=== PATIENT | female | born 1935 | race Caucasian/White ===

== ENCOUNTER 2016-02-29 15:36 | Outpatient (CLI) | payer OTHER ==
[~2016-02-29] VITALS: Ht 152.4 cm; Wt 47.7 kg
[~2016-02-29 15:36] MED LIST: /MOXI40TA OR; ACET65TA OR; ALPHAGAN OU; ASPI81TA51 PO; Albuterol Inhaler INH; Albuterol Nebulizer INH; BONE DENSITY IM; DONEPEZIL PO; DUONSOL INH; FURO20TA2 PO; GLUC500T3 OR; KEPP500T4 PO; LASI20TA PO; MUCI600T34 PO; MULTIVIT PO; Multivitamin PO; Oxygen INH; PERC5TAB8 OR; PRAV10TA4 OR; SYMB80AE IN; Symbicort Inhaler INH; TRAM50TA2 OR; XALATAN OU; ZOLEDRONIC ACID 5 MG in APPROPRIATE DILUENT 1 EA IV ONE; [UNRECOGNIZED DRUG - OTHER] PO; [UNRECOGNIZED DRUG - REMARK] OU
[2016-02-29] MEDS ORDERED: BREO1INH INH (16:18)
[2016-02-29] MEDS ORDERED: TYLE325T5 PO (16:18)
[2016-02-29] MEDS ORDERED: LEVE500T64 PO (16:18)
[2016-02-29] MEDS ORDERED: [UNRECOGNIZED DRUG - OTHER] OU (16:18)
[2016-02-29] MEDS ORDERED: ASPI81TA85 PO (16:18)
[2016-02-29] MEDS ORDERED: BIMA01SOL OU (16:18)
[2016-02-29] MEDS ORDERED: RECL5INJ2 IV (16:48)
== END 2016-02-29 16:40 | disposition home or self-care (01) ==
LOC: M INFU 15:36
PROVIDERS: ATTEND Family Medicine
DX: M81.0 Age-related osteoporosis without current pathological fracture (principal); Z78.0 Asymptomatic menopausal state; I10 Essential (primary) hypertension; E78.5 Hyperlipidemia, unspecified; I50.9 Heart failure, unspecified; J44.9 Chronic obstructive pulmonary disease, unspecified; M19.90 Unspecified osteoarthritis, unspecified site; F17.200 Nicotine dependence, unspecified, uncomplicated; Z88.8 Allergy status to other drugs, medicaments and biological substances; Z88.2 Allergy status to sulfonamides; Z91.013 Allergy to seafood; Z79.82 Long term (current) use of aspirin; Z79.51 Long term (current) use of inhaled steroids; Z79.899 Other long term (current) drug therapy; Z99.81 Dependence on supplemental oxygen
CPT/HCPCS: 96365; J3489

== ENCOUNTER → 2016-03-08 | Outpatient (CLI) | payer OTHER ==
[~2016-03-08] MED LIST changes: +ASPI81TA85 PO; +BIMA01SOL OU; +BREO1INH INH; +LEVE500T64 PO; +RECL5INJ2 IV; +TYLE325T5 PO; -ZOLEDRONIC ACID 5 MG in APPROPRIATE DILUENT 1 EA IV ONE; +[UNRECOGNIZED DRUG - OTHER] OU
--- NOTE | 2016-03-12 10:29 | DEXA ---
AP SPINE L1 - L4 1.005 -1.5 0.9 LT FEMUR TOTAL 0.816 -1.5 1.1 RT FEMUR TOTAL 0.858 -1.2 1.4 TOTAL BODY TOTAL OTHER L1 0.713 -3.5 -1.0 DUAL FEMUR FRAX* ASSESSMENT Risk factors: History of adult fracture, secondary osteoporosis, premature menopause. 10 year probability of fracture Major osteoporotic fracture 17.6 % Hip fracture 4.9 % COMMENTS: There is low bone density of the spine and hips. The density of the spine has decreased 1.0% since the initial exam on 2001. The spine density has decreased 1.4% since the most recent exam on 05/21/2006. The density of the left hip has decreased 9.4% since the initial exam on 2001. The density of the left hip has decreased 4.4% since the most recent exam on 04/2006. The density of the right hip has decreased 4.5% since the initial exam on 2001. The density of the right hip has decreased 1.2% since the most recent exam on . FOLLOW-UP: Recommendation for the next bone density exam: 2 years. DANIELA
== END ==
LOC: M WHC 11:29
PROVIDERS: ATTEND Family Medicine
DX: M81.0 Age-related osteoporosis without current pathological fracture (principal); Z78.0 Asymptomatic menopausal state

== ENCOUNTER 2016-08-04 10:36 | Inpatient (IN) | payer OTHER ==
[~2016-08-04] VITALS: Ht 152.4 cm; Wt 54.5 kg
[2016-08-04] MEDS ORDERED: MAGN30TA2 PO (10:56)
[2016-08-04] MEDS ORDERED: DONETAB5 PO ×2 (10:56→13:25)
[2016-08-04] MEDS ORDERED: VITA-114 PO (10:56)
[2016-08-04] MEDS ORDERED: ALB2.5NEB INH (10:56)
[2016-08-04] MEDS ORDERED: GLUC1CAP9 PO (10:56)
[2016-08-04] MEDS ORDERED: NS 500 ML IV ONE (11:00)
[2016-08-04] MEDS ORDERED: methylPREDNISolone INJ 125 MG/2 ML VIAL (J2930) IV ONE (11:00)
[2016-08-04] MEDS ORDERED: IPRATROPIUM 0.5MG/ALBUTEROL 2.5MG INH SOL UD 3ML (DUONEB)(J7620) NEB ONE (11:00)
[2016-08-04] MEDS ORDERED: ALBUTEROL SULFATE 2.5 MG/0.5 ML INH NEB SOLN INH ONE (11:00)
[2016-08-04 11:28] LABS: BASO % 0.3 % (0.0-1.0); EOS % 0.1 % (0.0-3.0); LARGE UNSTAINED CELL # 0.1 K/mm3 (0.0-0.4); LARGE UNSTAINED CELL % 0.8 % (0.0-4.0); LYMPH # 1.3 K/mm3 (1.5-4.5); LYMPH % 6.9 % (24.0-44.0); MEAN CORPUSCULAR HEMOGLOBIN 30.4 pg (27.0-33.0); MEAN CORPUSCULAR HGB CONC 33.2 g/dl (32.0-36.5); MEAN CORPUSCULAR VOLUME 91.4 fl (80.0-96.0); MONO # 0.9 K/mm3 (0.0-0.8); MONO % 5.5 % (0.0-5.0); NEUTROPHILS # 14.2 K/mm3 (1.8-7.7); NEUTROPHILS % 86.4 % (36.0-66.0); PLATELET COUNT, AUTOMATED 273 k/mm3 (150-450); RED CELL DISTRIBUTION WIDTH 13.3 % (11.5-14.5); WHITE BLOOD COUNT 16.4 K/mm3 (4.0-10.0)
[2016-08-04 11:28] LABS: ABG BASE EXCESS 5.7 (-2.0-2.0); ABG HCO3 31.1 MEQ/L (22.0-26.0); ABG PARTIAL PRESSURE CO2 48.9 mmHg (35.0-45.0); ABG PARTIAL PRESSURE O2 354.8 mmHg (75.0-100.0); ABG STANDARD HCO3 29.7 MEQ/L (22.0-26.0); ABG TOTAL CO2 32.7 MEQ/L (23.0-31.0); ABG pH (ARTERIAL) 7.422 UNITS (7.350-7.450)
[2016-08-04 11:33] LABS: INR 1.08
[2016-08-04 11:45] LABS: ALBUMIN 3.4 GM/DL (3.2-5.2); ALBUMIN/GLOBULIN RATIO 0.94 (1.00-1.93); ALKALINE PHOSPHATASE 83 U/L (45-117); ALT/SGPT 18 U/L (12-78); ANION GAP 7 MEQ/L (8-16); AST/SGOT 13 U/L (15-37); BILIRUBIN,DIRECT 0.1 MG/DL (0.0-0.2); BILIRUBIN,TOTAL 0.5 MG/DL (0.2-1.0); BLOOD UREA NITROGEN 20 MG/DL (7-18); CARBON DIOXIDE LEVEL 32 MEQ/L (21-32); CHLORIDE LEVEL 103 MEQ/L (98-107); CREATININE FOR GFR 0.92 MG/DL (0.55-1.02); GLOMERULAR FILTRATION RATE > 60.0 (>32); GLUCOSE, FASTING 117 MG/DL (83-110); POTASSIUM SERUM 4.2 MEQ/L (3.5-5.1); SODIUM LEVEL 142 MEQ/L (136-145)
--- NOTE | 2016-08-04 12:08 | REP ---
Portable chest x-ray: Sitting AP view. History: Dyspnea and cough. Comparison chest x-ray: April 17, 2012. Findings: EKG monitoring electrodes overlie the chest along with oxygen delivery tubing. The patient is status post left thoracotomy with elevation of the left hemidiaphragm and left mediastinal clips and sutures. The heart is not enlarged. There is some increased density in the right base just above the right hemidiaphragm which appears to be chronic. No new infiltrate is seen. Stable left apical pleural thickening. Impression: Postsurgical findings left chest. Chronic increased markings right base. No acute infiltrate seen. Signed by Vik Tucker MD 08/04/2016 12:45 P
[2016-08-04] MEDS ORDERED: ACETAMINOPHEN TAB 650MG DOSE (2X325MG) PO PRN (13:15)
[2016-08-04] MEDS ORDERED: ONDANSETRON 4MG/2ML VIAL (J2405) IV PRN (13:15)
[2016-08-04] MEDS ORDERED: IPRATROPIUM 0.5MG/ALBUTEROL 2.5MG INH SOL UD 3ML (DUONEB)(J7620) NEB PRN (13:15)
[2016-08-04] MEDS ORDERED: FURO40TA2 PO (13:25)
[2016-08-04] MEDS ORDERED: BREO1INH3 INH (13:25)
[2016-08-04] MEDS ORDERED: BIOT10005 PO (13:25)
[2016-08-04] MEDS ORDERED: FIBE62TA PO (13:25)
[2016-08-04] MEDS ORDERED: VITA100041 PO (13:25)
[2016-08-04] MEDS ORDERED: MAGN400T5 PO (13:25)
[2016-08-04] MEDS ORDERED: PRESCAP6 PO (13:25)
[2016-08-04] MEDS ORDERED: VITA10002 PO (13:25)
[2016-08-04] MEDS ORDERED: ALBU17IN INH (13:25)
[2016-08-04] MEDS ORDERED: BRIM2OPD OU (13:25)
[2016-08-04] MEDS ORDERED: VITMTA PO (13:25)
[2016-08-04] MEDS ORDERED: NAME14CA PO (13:25)
[2016-08-04] MEDS ORDERED: PREV10CA PO (13:34)
--- NOTE | 2016-08-04 14:14 | HPEPDOC ---
General Date of Admission 08/04/16 Primary Care Physician: ALEXA MARTINEZ MD [facility] Other Providers Icu Manager: Dr. Matos Attending Physician: KAYLEEN YEE MD Chief Complaint The patient is a 81-year-old female admitted with a reason for visit of Breathing Issues. History of Present Illness 81-year-old female with past medical history of COPD on 3-4 L of oxygen at baseline, left upper lobectomy 2/2 Benign lesion in Early , diastolic congestive heart failure, seizure disorder, and dementia presented to the ER with a chief complaint of shortness of breath. The extent of his history is somewhat limited given the patient's baseline dementia. However according to the patient's daughter who is at the bedside the patient has been complaining of shortness of breath over the last 24 hours. The patient lives alone in a separate portion from her son in a two-family home. At baseline, the patient is able to ambulate without any assistive devices. Earlier today, the patient's son went to check up on his mother and noticed that the patient was having increased difficulty breathing. Apparently, the patient's air-conditioner was not working and the temperature in the room was noted to be 85 degrees. In addition, the patient was noted to be saturating 86% on 4 L of oxygen via nasal cannula. The patient was administered albuterol treatment, but continued to have respiratory distress and was brought to the ER. During this time, the patient has denied any complaints of fevers, chills, chest pain, palpitations, abdominal pain, recent travel, recent sick contacts, or any nausea/vomiting/ diarrhea. In the ER, the patient was noted to be wheezing diffusely and was administered IV Solu-Medrol. The patient will be admitted under the hospitalist service for further evaluation and management. Home Medications Scheduled (Glucosamine & Chondroitin 500-400 mg) 1 Cap Cap, 1 CAP PO QHS, (Reported) (Preservision Areds 2) 1 Cap Cap, 1 CAP PO BID, (Reported) (Prevagen) 10 Mg Cap, 10 MG PO DAILY, (Reported) Acetaminophen (Tylenol) 325 Mg Tab, 650 MG PO PRN for PAIN, (Reported) Albuterol Sulfate (Albuterol Sulfate) 2.5 Mg/0.5 Ml Neb, 2.5 MG INH QID, ( Reported) Aspirin (Aspir-81) 81 Mg Tab, 81 MG PO QHS, (Reported) Bimatoprost (Lumigan) 50 Drop/2.5 Ml Marissa, 1 DROP OU QHS, (Reported) Biotin (Vitamin H) (Biotin) 1,000 Mcg Tab, 1,000 MCG PO QHS, (Reported) Brimonidine Tartrate 0.15% (Brimonidine Tartrate) 100 Drop/5 Ml Soln, 1 DROP OU BID, (Reported) PT USES .2%- COULD NOT FIND IN OUR SYSTEM Calcium Polycarbophil (Fiber-Lax) 1 Ea Tab, 1 TAB PO DAILY, (Reported) Cholecalciferol (Vitamin D3) 1,000 Unit Cap, 2,000 UNIT PO DAILY, (Reported) Cyanocobalamin (Vitamin B-12) 1,000 Mcg Tab, 1,000 MCG PO QHS, (Reported) Donepezil Hcl (Donepezil HCl) 5 Mg Tab, 5 MG PO DAILY, (Reported) Fluticasone/Vilanterol (Breo Ellipta 200-25 Mcg/INH) 1 Inh Inh, 1 PUFF INH DAILY , (Reported) Furosemide (Furosemide) 40 Mg Tab, 20 MG PO DAILY, (Reported) Levetiracetam (Levetiracetam ER) 500 Mg Tab, 500 MG PO BID, (Reported) Magnesium Oxide (Magnesium Oxide 400) 400 Mg Tab, 400 MG PO DAILY, (Reported) Memantine Hydrochloride (Namenda Xr) 14 Mg Cap, 14 MG PO DAILY, (Reported) Multivitamins *[facility] STOCKED* (Thera M Plus *[facility] STOCKED*) 1 Tab Tab, 1 TAB PO DAILY, (Reported) Scheduled PRN Albuterol Sulfate (Ventolin Hfa) 200 Puff/8 Gm Aers, 2 PUFF INH Q4H PRN for SHORTNESS OF BREATH, (Reported) Allergies Coded Allergies: Scallop (Verified Allergy, Severe, FEELS LIKE SHE IS DYING, 02/08/11) Iodine (Verified Allergy, Unknown, 05/19/12) Sulfa Drugs (Verified Allergy, Unknown, 02/22/14) Sulfa Drugs Cross Reactors (Verified Allergy, Unknown, 02/22/14) Past Medical History Medical History As noted in HPI. Surgical History Left upper lobe surgery in , hysterectomy, cataract surgery. Family History Significant Family History: No pertinent family hx Social History * Smoker: former Smoker (smoked 1 pack per day for 30+ years, quit in 1990) Alcohol: occationally Drugs: denies Review of Symptoms Other systems 10 point review of systems as noted in the HPI. Physical Examination General Exam: Positive: Cooperative, No Acute Distress ENT Exam: Positive: Atraumatic, Mucous membr. moist/pink Neck Exam: Negative: JVD Chest Exam: Positive: Wheezing, Diminished Heart Exam: Positive: Rate Normal, Normal S1, Normal S2 Telemetry: Positive: Sinus Abdomen Exam: Positive: Soft, Negative: Tenderness Extremity Exam: Negative: Tenderness, Swelling Vital Signs Vital Signs Date Time Temp Pulse Resp B/P (MAP) Pulse Ox O2 Delivery O2 Flow Rate FiO2 08/04/16 13:51 90 08/04/16 13:30 159/62 (94) 08/04/16 13:21 98 08/04/16 11:08 Nasal Cannula 2.0 08/04/16 10:57 97.5 24 Laboratory Data Labs 24H Laboratory Tests 2 08/04/16 11:01: Prothrombin Time 14.1, Prothromb Time International Ratio 1.08, D-Dimer, Quantitative 936.6H 08/04/16 11:02: White Blood Count 16.4H, Red Blood Count 4.03, Hemoglobin 12.3, Hematocrit 36.9 , Mean Corpuscular Volume 91.4, Mean Corpuscular Hemoglobin 30.4, Mean Corpuscular Hemoglobin Concent 33.2, Red Cell Distribution Width 13.3, Platelet Count 273, Neutrophils (%) (Auto) 86.4H, Lymphocytes (%) (Auto) 6.9L, Monocytes (%) (Auto) 5.5H, Eosinophils (%) (Auto) 0.1, Basophils (%) (Auto) 0.3, Neutrophils # (Auto) 14.2H, Lymphocytes # (Auto) 1.3L, Monocytes # (Auto) 0.9H, Eosinophils # (Auto) 0.0, Basophils # (Auto) 0.0, Large Unclassified Cells % 0.8 , Large Unclassified Cells # 0.1, Anion Gap 7L, Glomerular Filtration Rate > 60.0, Lactic Acid Level 1.8, Calcium Level 9.0, Aspartate Amino Transf (AST/SGOT ) 13L, Alanine Aminotransferase (ALT/SGPT) 18, Alkaline Phosphatase 83, Total Bilirubin 0.5, Direct Bilirubin 0.1, Total Creatine Kinase 66, Creatine Kinase MB 1.0, Creatine Kinase MB Relative Index 1.51, Troponin I 0.02, B-Type Natriuretic Peptide 271H, Total Protein 7.0, Albumin 3.4, Albumin/Globulin Ratio 0.94L, Thyroid Stimulating Hormone (TSH) 4.430H, Thyroxine (T4) 7.0 08/04/16 11:04: Blood Gas Bicarbonate Standard 29.7H, Arterial Blood pH 7.422, Arterial Blood Partial Pressure CO2 48.9H, Arterial Blood Partial Pressure O2 354.8H, Arterial Blood Total CO2 32.7H, Arterial Blood HCO3 31.1H, Arterial Blood Base Excess 5.7H, Arterial Blood Oxygen Saturation 100.0H CBC/BMP Laboratory Tests 08/04/16 11:02 Red Blood Count 4.03, Mean Corpuscular Volume 91.4, Mean Corpuscular Hemoglobin 30.4, Mean Corpuscular Hemoglobin Concent 33.2, Red Cell Distribution Width 13.3 , Neutrophils (%) (Auto) 86.4 H, Lymphocytes (%) (Auto) 6.9 L, Monocytes (%) ( Auto) 5.5 H, Eosinophils (%) (Auto) 0.1, Basophils (%) (Auto) 0.3, Neutrophils # (Auto) 14.2 H, Lymphocytes # (Auto) 1.3 L, Monocytes # (Auto) 0.9 H, Eosinophils # (Auto) 0.0, Basophils # (Auto) 0.0 Microbiology Microbiology 08/04/16 Blood Culture, Received Pending 08/04/16 Blood Culture, Received Pending Plan / VTE VTE Prophylaxis Ordered?: Yes Plan Plan Acute on chronic hypoxic failure secondary to COPD exacerbation We will admit the patient to the med/surge unit Status post Solu-Medrol in the ER We will start her on by mouth prednisone, continue Advair, nebulizer therapy, Acapella Chest x-ray with no acute infiltrate noted Respiratory panel, sputum culture, and blood cultures ordered We will continue to monitor the patient's respiratory status and down titrate supplemental oxygen as tolerated History of diastolic congestive heart failure Last echocardiogram from 10/2011 noted to have stage I diastolic heart failure Patient does appear to be euvolemic at this time 2-D echocardiogram ordered Will continue Lasix by mouth daily History of seizure disorder Continue Yarelis Has not had an episode of seizures for years according to the daughter at bedside Follows with Dr. Min as an outpatient every 3 months History of left upper lobe lobectomy in 1990 History of dementia DVT prophylaxis Lovenox SC Social disposition-we will consult physical therapy, PFS for possible eligibility of home care services given the patient's current living situation. The patient will be admitted under service of Dr. Yee, who will begin to follow the patient on 08/05/16 at 7 AM. KAMRAN FRANCIS MD Aug 04, 2016 14:14
--- NOTE | 2016-08-04 15:16 | REP ---
Duplex extremity venous ultrasound: Bilateral lower extremities. History: Pain. Findings: The deep veins are anechoic and fully compressible from the groin to the popliteal fossa in the right and left lower extremity. Color flow imaging is homogeneous. Spectral Doppler interrogation demonstrates intact respiratory variation in flow and normal manual augmentation of flow. There is no evidence of deep vein thrombosis. Impression: Negative bilateral lower extremity duplex venous ultrasound. No evidence of deep vein thrombosis. Signed by Vik Tucker MD 08/04/2016 03:07 P
[2016-08-04 15:40] VITALS: BP 120/77
[2016-08-04] MEDS: IPRATROPIUM 0.5MG/ALBUTEROL 2.5MG INH SOL UD 3ML (DUONEB)(J7620) NEB SCH ×3 (16:09→22:42)
--- NOTE | 2016-08-04 19:44 | ECGEPIP ---
Stationary ECG Study [facility] - ED Test Date: 2016-08-04 Pat Name: MARTHA BANKS Department: Room: - Gender: F [employer] Feeder: OPAL : 1935 Requested By: Maikol Martinez Order Number: [id number] Reading MD: Maikol Martinez Measurements Intervals [place] Rate: 86 P: 79 ID: [id number] QRS: 36 QRSD: 77 T: 50 QT: 365 QTc: 439 Interpretive Statements SINUS RHYTHM POSSIBLE RIGHT VENTRICULAR CONDUCTION DELAY NONSPECIFIC ST T WAVE CHANGED CW 11/14/11 NO SIGNIFICANT CHANGES Electronically Signed On 08-04-2016 19:44:21 EDT by Maikol Martinez
[2016-08-04] MEDS: levETIRAcetam **XR** 500 MG TABLET PO SCH (20:06)
[2016-08-04] MEDS: ADVAIR DISKUS 250/50 INH PWD INH SCH (20:14)
[2016-08-04] MEDS ORDERED: ASPIRIN 81 MG ENTERIC TAB PO SCH (21:00)
[2016-08-04] MEDS ORDERED: CYANOCOBALAMIN 500 MCG TAB PO SCH (21:00)
[2016-08-04 22:00] VITALS: BP 139/70
[2016-08-05] MEDS: IPRATROPIUM 0.5MG/ALBUTEROL 2.5MG INH SOL UD 3ML (DUONEB)(J7620) NEB SCH ×3 (03:30→11:15)
[2016-08-05 06:00] VITALS: BP 154/77
[2016-08-05 06:01] LABS: MEAN CORPUSCULAR HGB CONC 32.4 g/dl (32.0-36.5); MEAN CORPUSCULAR VOLUME 92.7 fl (80.0-96.0); RED CELL DISTRIBUTION WIDTH 13.2 % (11.5-14.5); WHITE BLOOD COUNT 13.6 K/mm3 (4.0-10.0)
[2016-08-05 06:47] LABS: ANION GAP 3 MEQ/L (8-16); BLOOD UREA NITROGEN 19 MG/DL (7-18); CARBON DIOXIDE LEVEL 33 MEQ/L (21-32); CHLORIDE LEVEL 107 MEQ/L (98-107); CREATININE FOR GFR 0.82 MG/DL (0.55-1.02); GLOMERULAR FILTRATION RATE > 60.0 (>32); GLUCOSE, FASTING 118 MG/DL (83-110); MAGNESIUM LEVEL 2.5 MG/DL (1.8-2.4); POTASSIUM SERUM 4.2 MEQ/L (3.5-5.1); SODIUM LEVEL 143 MEQ/L (136-145)
--- NOTE | 2016-08-05 07:29 | ECHO ---
DATE OF PROCEDURE: 08/04/2016 DATE OF : 1935 AGE: 81 GENDER: Female HEIGHT: 60 inches WEIGHT: 105 pounds BODY SURFACE AREA: 1.42 meters squared INPATIENT: Currently in holding in the emergency room REFERRING PHYSICIAN: Dr. Holliday INDICATION: Dyspnea MEASUREMENTS 2D measurements: RV: 2.5 cm LV: 3.1 cm Septum: 0.9 cm Posterior wall: 0.9 cm Aortic root: 2.8 cm LA: 2.5 cm LVEF: 75% Doppler measurements: AV: 1.3 meters per second LVOT: 1.3 meters per second MV-E: 95, A: 130, EA ratio: 0.7 Early mitral deceleration time: 278 milliseconds E prime: 6.4, A prime: 14, E/E prime ratio: 14.8 PV: 1.0 meters per second Pulmonary artery acceleration time: 113 milliseconds RVSP: 28-32 mmHg IVC: 1.5 cm Underlying sinus rhythm without intraventricular conduction disturbance. Two-dimensional and M-mode echocardiography, pulsed and continuous wave Doppler, tissue Doppler and color flow Doppler was performed. CONCLUSIONS: Normal left ventricular size, wall thickness and hyperkinetic wall motion. Normal left atrial size but Doppler evidence of an impairment of LV diastolic function and at least borderline elevated mean left atrial pressure. Normal right heart chamber sizes and wall motion with Doppler evidence of pulmonary arterial pressure upper limits of normal to mildly increased. Normal IVC size and collapse against an elevated central venous pressure. Aortic valvular sclerosis without functional abnormality. Slightly thickened mitral annulus without inflow tract obstruction and very mild insufficiency. No apparent intracardiac mass or pericardial effusion.
[2016-08-05] MEDS: ADVAIR DISKUS 250/50 INH PWD INH SCH (08:19)
[2016-08-05] MEDS: levETIRAcetam **XR** 500 MG TABLET PO SCH (08:53)
[2016-08-05] MEDS ORDERED: MAGNESIUM OXIDE 400 MG TAB (MAG-OX) PO SCH (09:00)
[2016-08-05] MEDS ORDERED: FIBER-CON 625 MG TAB PO SCH (09:00)
[2016-08-05] MEDS ORDERED: FUROSEMIDE 20 MG TAB PO SCH (09:00)
[2016-08-05] MEDS ORDERED: predniSONE 20 MG TAB PO SCH (09:00)
[2016-08-05] MEDS ORDERED: ENOXAPARIN 30 MG/0.3 ML SYR (J1650) SC SCH (09:00)
[2016-08-05] MEDS ORDERED: VITAMIN D 1,000 INTERNATIONAL UNITS TABLET PO SCH (09:00)
[2016-08-05] MEDS ORDERED: MULTIVITAMINS/MINERALS THERAP 1 TAB PO SCH (09:00)
[2016-08-05] MEDS ORDERED: PRED10TA PO (09:35)
--- NOTE | 2016-08-06 03:31 | DSES ---
DATE OF ADMISSION: 08/04/2016 DATE OF DISCHARGE: 08/05/2016 DISCHARGE DIAGNOSIS: Acute on chronic respiratory failure. SECONDARY DIAGNOSES: 1. Chronic obstructive pulmonary disease (COPD). 2. Chronic diastolic congestive heart failure. 3. Seizure disorder. 4. Status post lobectomy. 5. Dementia. HOSPITAL COURSE: The patient is an 81-year-old female who had been reportedly having increased coughing, increased shortness of breath on the day prior to admission. There was also some concern that the home where she was living the air conditioner broke and it was very hot. She presented to the hospital hypoxic. She received intravenous (IV) Solu-Medrol, DuoNebs, and was admitted to medical/surgical floor. She did improve with these measures quite quickly and returned to her baseline respiratory status. She did have an echocardiogram completed, which revealed Doppler evidence of left ventricular (LV) diastolic impairment, normal inferior vena cava (IVC) size and collapse. Patient was offered home services and home care; however, she did not wish to remain in the hospital in order for this to be arranged by social work. Blood cultures were negative after 24 hours. Respiratory PCR panel was negative. Patient had duplex of the lower extremities that did not reveal any deep venous thrombosis (DVT). She had a slightly elevated D-dimer of 936.6. She had a chest x-ray that revealed postsurgical left chest and chronic increased markings at the right base, but no acute infiltrate. SUBJECTIVE: Today, the patient reports that she feels well. She tells me that she feels completely back to normal. She was ready to go home. The patient is accompanied by her two daughters in the room, who agree. OBJECTIVE: VITAL SIGNS: Temperature 97, pulse 88, respiratory rate 20, blood pressure 154/77, oxygen saturation 94% on 2 liters nasal cannula. GENERAL: She is a frail, elderly female sitting up in a chair eating breakfast. She is in no distress. HEENT: She appears comfortable. She has moist mucous membranes. No elevation of central venous pressure (CVP). CARDIOVASCULAR EXAM: S1, S2, regular. RESPIRATORY EXAM: She has a prolonged expiratory phase. She has a pink puffer phenotype. No audible wheeze. ABDOMINAL EXAM: Benign. EXTREMITIES: She appears wasted. LABORATORY STUDIES: WBC 13.6 down from 16.4, hemoglobin 10.7, hematocrit 33.2, platelet count 243. Chemistry panel: Sodium 143, potassium 4.2, chloride 107, bicarbonate 33, BUN 19, creatinine 0.9. Three sets of cardiac enzymes are negative. D-dimer 936.6. ASSESSMENT AND PLAN: This is an 81-year-old female with acute on chronic respiratory failure. 1. Acute on chronic respiratory failure. Likely secondary to decompensated chronic obstructive pulmonary disease (COPD) versus respiratory distress related to significant humidity and heat in the setting where the patient lives. Fairly significant baseline COPD and status post lung resection. At this time, the patient's symptoms have completely resolved. Her D-dimer was elevated; however, given that she is not tachycardic, there is alternative competing diagnosis and her symptoms have all resolved without anticoagulation, my suspicion for pulmonary embolus (PE) is much lower. At this time, the patient is medically stable for discharge home. The patient will be discharged on a prednisone taper. She can use her home inhalers. 2. Seizure disorder. Continue with Keppra. 3. B12 deficiency. Continue with supplementation. 4. Diastolic heart failure. The patient was euvolemic during her stay. She was continued on Lasix. She is on aspirin. 5. Deep venous thrombosis (DVT) prophylaxis. The patient was on Lovenox. DISPOSITION: The patient is being discharged home to the care of her family. She has people with her 10/09. She is to followup with her primary care provider (PCP) in 7 days. Her activity and diet are as prior to admission. She is to return to the emergency room (ER) if her symptoms worsen. She is to consider home care through primary care provider. MEDICATIONS: At the time of discharge: - prednisone four tablets for 3 days, three tablets for 3 days, two tablets for 3 days, one tablet for 3 days - acetaminophen 650 as needed for pain - albuterol nebulizer 2.5 mg four times daily - Ventolin HFA two puffs every 4 hours as needed for shortness of breath - aspirin 81 mg daily - Lumigan one drop nightly each eye - vitamin H as per the patient - brimonidine tartrate each eye twice a day - Fiber-Lax as per the patient - vitamin D3 2000 units daily - B12 1000 mcg at bedtime - donepezil 5 mg daily - Breo Ellipta 200/25 one puff daily - Lasix 20 mg daily - glucosamine chondroitin as per the patient - Keppra extended release 500 mg twice a day - magnesium oxide 400 mg daily - Namenda XR 14 mg daily - multivitamin one tablet daily - PreserVision AREDS as per the patient - Prevagen 10 mg as per the patient Greater than 45 minutes spent organizing disposition.
== END 2016-08-05 11:36 | disposition home or self-care (01) | DRG 189 ==
LOC: M ED 12:08 → M ED INP 13:04 → M MSPAV 15:40
PROVIDERS: ADMIT Internal Medicine; ATTEND Internal Medicine
DX: J96.21 Acute and chronic respiratory failure with hypoxia (principal); J44.1 Chronic obstructive pulmonary disease with (acute) exacerbation; I50.32 Chronic diastolic (congestive) heart failure; G40.909 Epilepsy, unspecified, not intractable, without status epilepticus; F03.90 Unspecified dementia, unspecified severity, without behavioral disturbance, psychotic disturbance, mood disturbance, and anxiety; E53.8 Deficiency of other specified B group vitamins; Z79.899 Other long term (current) drug therapy; Z79.82 Long term (current) use of aspirin; Z88.2 Allergy status to sulfonamides; Z88.8 Allergy status to other drugs, medicaments and biological substances; Z91.013 Allergy to seafood; Z87.891 Personal history of nicotine dependence

== ENCOUNTER → 2016-08-06 | Outpatient (REF) | payer OTHER ==
[~2016-08-06] MED LIST changes: +ALB2.5NEB INH; +ALBU17IN INH; +BIOT10005 PO; +BREO1INH3 INH; +BRIM2OPD OU; +DONETAB5 PO; +FIBE62TA PO; +FURO40TA2 PO; +GLUC1CAP9 PO; +MAGN30TA2 PO; +MAGN400T5 PO; +NAME14CA PO; +PRED10TA PO; +PRESCAP6 PO; +PREV10CA PO; +VITA-114 PO; +VITA10002 PO; +VITA100041 PO; +VITMTA PO
== END ==
LOC: M LABNEURO 17:29
PROVIDERS: ATTEND Physician Assistant Medical
DX: R56.9 Unspecified convulsions (principal)

== ENCOUNTER → 2017-03-11 | Outpatient (REF) | payer OTHER ==
[2017-03-14 14:15] LABS: LEVETIRACETAM (KEPPRA) 22.1 ug/mL (10.0-40.0)
== END ==
LOC: M LABNEURO 13:52
DX: R56.9 Unspecified convulsions (principal)
CPT/HCPCS: 36415

== ENCOUNTER 2017-06-09 13:26 | Emergency (ER) | payer OTHER ==
[2017-06-09 14:07] LABS: BASO % 0.3 % (0.0-1.0); EOS % 0.5 % (0.0-3.0); HEMOGLOBIN 10.8 g/dl (12.0-15.5); IMMATURE GRANULOCYTE % 0.2 % (0-3.0); LYMPH # 1.4 10^3/uL (1.5-4.5); MEAN CORPUSCULAR HGB CONC 31.8 g/dl (32.0-36.5); MEAN CORPUSCULAR VOLUME 91.4 fl (80.0-96.0); MONO # 0.7 10^3/uL (0.0-0.8); MONO % 10.8 % (0.0-5.0); NEUTROPHILS % 65.2 % (36.0-66.0); PLATELET COUNT, AUTOMATED 264 10^3/uL (150-450); RED BLOOD COUNT 3.72 10^6/uL (4.00-5.40); RED CELL DISTRIBUTION WIDTH 13.9 % (11.5-14.5); WHITE BLOOD COUNT 6.1 10^3/uL (4.0-10.0)
[2017-06-09] MEDS: IPRATROPIUM 0.5MG/ALBUTEROL 2.5MG INH SOL UD 3ML (DUONEB)(J7620) NEB ×2 (14:19→14:39)
[2017-06-09 14:32] LABS: ABG BASE EXCESS 7.1 (-2.0-2.0); ABG HCO3 31.7 MEQ/L (22.0-26.0); ABG O2 SATURATION 99.6 % (95.0-99.0); ABG PARTIAL PRESSURE CO2 45.3 mmHg (35.0-45.0); ABG PARTIAL PRESSURE O2 208.3 mmHg (75.0-100.0); ABG TOTAL CO2 33.1 MEQ/L (23.0-31.0); ABG pH (ARTERIAL) 7.463 UNITS (7.350-7.450)
[2017-06-09 15:13] LABS: LACTIC ACID SEPSIS PROTOCOL 0.9 MMOL/L (0.4-2.0)
[2017-06-09 15:15] LABS: ALBUMIN 3.2 GM/DL (3.2-5.2); ALBUMIN/GLOBULIN RATIO 0.97 (1.00-1.93); ALKALINE PHOSPHATASE 81 U/L (45-117); ALT/SGPT 19 U/L (12-78); ANION GAP 7 MEQ/L (8-16); AST/SGOT 17 U/L (7-37); BILIRUBIN,DIRECT < 0.1 MG/DL (0.0-0.2); BILIRUBIN,TOTAL 0.3 MG/DL (0.2-1.0); BLOOD UREA NITROGEN 16 MG/DL (7-18); C REACTIVE PROTEIN QUANTITATIV 0.33 MG/DL (0.00-0.30); CALCIUM LEVEL 8.5 MG/DL (8.8-10.2); CARBON DIOXIDE LEVEL 35 MEQ/L (21-32); CHLORIDE LEVEL 101 MEQ/L (98-107); CPK CREATINE PHOSPHOKINASE 82 U/L (26-192); CREATININE FOR GFR 0.93 MG/DL (0.55-1.30); GLOMERULAR FILTRATION RATE > 60.0 (>32); GLUCOSE, FASTING 96 MG/DL (70-100); POTASSIUM SERUM 3.9 MEQ/L (3.5-5.1); SODIUM LEVEL 143 MEQ/L (136-145); THYROXINE (T4) 7.9 UG/DL (4.5-12.0); TOTAL PROTEIN 6.5 GM/DL (6.4-8.2); TROPONIN I < 0.02 NG/ML (< 0.10)
[2017-06-09 15:19] LABS: INFLUENZA A AMPLIFICATION NEGATIVE (NEGATIVE); INFLUENZA B AMPLIFICATION NEGATIVE (NEGATIVE)
[2017-06-09 15:21] LABS: MB/CK RELATIVE INDEX 2.43 (< OR =4); NT-PRO BNP 245 PG/ML (<450)
== END 2017-06-09 17:45 | disposition home or self-care (01) ==
LOC: M ED 13:26
DX: J44.9 Chronic obstructive pulmonary disease, unspecified (principal); I45.19 Other right bundle-branch block; F03.90 Unspecified dementia, unspecified severity, without behavioral disturbance, psychotic disturbance, mood disturbance, and anxiety; Z87.891 Personal history of nicotine dependence; Z79.82 Long term (current) use of aspirin; Z79.899 Other long term (current) drug therapy; Z91.89 Other specified personal risk factors, not elsewhere classified; Z88.2 Allergy status to sulfonamides; Z91.013 Allergy to seafood
CPT/HCPCS: 71046

== ENCOUNTER → 2017-08-06 | Outpatient (CLI) | payer OTHER ==
[2017-08-06 17:15] LABS: FREE T3 2.4 PG/ML (2.2-4.0); FREE T4 0.87 NG/DL (0.76-1.46)
== END ==
LOC: M WUC 11:05
DX: E07.9 Disorder of thyroid, unspecified (principal)
CPT/HCPCS: 84443

== ENCOUNTER → 2017-09-09 | Outpatient (REF) | payer OTHER ==
[2017-09-12 15:06] LABS: LEVETIRACETAM (KEPPRA) 28.6 ug/mL (10.0-40.0)
== END ==
LOC: M LABNEURO 08:33
DX: G40.909 Epilepsy, unspecified, not intractable, without status epilepticus (principal)
CPT/HCPCS: 36415

== ENCOUNTER → 2017-12-10 | Outpatient (REF) | payer OTHER ==
[2017-12-10 12:46] LABS: BASO % 0.4 % (0.0-1.0); EOS % 0.6 % (0.0-3.0); HEMATOCRIT 35.3 % (36.0-47.0); HEMOGLOBIN 11.4 g/dl (12.0-15.5); IMMATURE GRANULOCYTE % 0.3 % (0-3.0); LYMPH # 1.7 10^3/uL (1.5-4.5); LYMPH % 24.6 % (24.0-44.0); MEAN CORPUSCULAR HEMOGLOBIN 29.8 pg (27.0-33.0); MEAN CORPUSCULAR HGB CONC 32.3 g/dl (32.0-36.5); MEAN CORPUSCULAR VOLUME 92.4 fl (80.0-96.0); MONO # 0.7 10^3/uL (0.0-0.8); MONO % 10.4 % (0.0-5.0); NEUTROPHILS # 4.3 10^3/uL (1.8-7.7); NEUTROPHILS % 63.7 % (36.0-66.0); PLATELET COUNT, AUTOMATED 291 10^3/uL (150-450); RED BLOOD COUNT 3.82 10^6/uL (4.00-5.40); RED CELL DISTRIBUTION WIDTH 14.4 % (11.5-14.5); WHITE BLOOD COUNT 6.7 10^3/uL (4.0-10.0)
[2017-12-10 22:27] LABS: ALBUMIN 3.4 GM/DL (3.2-5.2); ALBUMIN/GLOBULIN RATIO 0.97 (1.00-1.93); ALKALINE PHOSPHATASE 79 U/L (45-117); ALT/SGPT 27 U/L (12-78); ANION GAP 8 MEQ/L (8-16); AST/SGOT 21 U/L (7-37); BILIRUBIN,TOTAL 0.2 MG/DL (0.2-1.0); BLOOD UREA NITROGEN 24 MG/DL (7-18); CALCIUM LEVEL 9.2 MG/DL (8.8-10.2); CARBON DIOXIDE LEVEL 33 MEQ/L (21-32); CHLORIDE LEVEL 101 MEQ/L (98-107); CREATININE FOR GFR 0.87 MG/DL (0.55-1.30); FREE T3 2.4 PG/ML (2.2-4.0); FREE T4 0.93 NG/DL (0.76-1.46); GLOMERULAR FILTRATION RATE > 60.0 (>32); GLUCOSE, FASTING 72 MG/DL (70-100); MAGNESIUM LEVEL 2.3 MG/DL (1.8-2.4); POTASSIUM SERUM 4.1 MEQ/L (3.5-5.1); SODIUM LEVEL 142 MEQ/L (136-145); TOTAL PROTEIN 6.9 GM/DL (6.4-8.2)
== END ==
LOC: M LABNEURO 12:08
DX: E07.9 Disorder of thyroid, unspecified (principal); E61.2 Magnesium deficiency; I50.32 Chronic diastolic (congestive) heart failure; R56.9 Unspecified convulsions; Z51.81 Encounter for therapeutic drug level monitoring; Z79.899 Other long term (current) drug therapy
CPT/HCPCS: 83735

== ENCOUNTER → 2017-12-10 | Outpatient (REF) | payer OTHER | LOC: M LABNEURO 12:04 | DX: R56.9 Unspecified convulsions (principal); Z51.81 Encounter for therapeutic drug level monitoring; Z79.899 Other long term (current) drug therapy ==

== ENCOUNTER → 2018-01-03 | Outpatient (REF) | payer OTHER ==
[2018-01-03 14:22] LABS: AMORPHOUS SEDIMENT SMALL (NEGATIVE); APPEARANCE, URINE CLOUDY (CLEAR); BACTERIA, URINE AUTO 3+ (NEGATIVE); BILIRUBIN, URINE AUTO NEGATIVE (NEGATIVE); BLOOD, URINE BLOOD NEGATIVE (NEGATIVE); COLOR, URINE YELLOW (YELLOW); GLUCOSE, URINE (UA) AUTO NEGATIVE (NEGATIVE); KETONE, URINE AUTO TRACE mg/dL (NEGATIVE); LEUKOCYTE ESTERASE, URINE AUTO 3+ (NEGATIVE); MUCUS, URINE SMALL (NEGATIVE); NITRITE, URINE AUTO POSITIVE (NEGATIVE); PROTEIN, URINE AUTO NEGATIVE (NEGATIVE); RBC, URINE AUTO 9 /HPF (0-3); SPECIFIC GRAVITY URINE AUTO 1.019 (1.002-1.035); SQUAMOUS EPITHELIAL CELL UR AU 14 /HPF (0-6); TRANSITIONAL EPITHELIAL AUTO 2 /HPF; UROBILINOGEN, URINE AUTO 0.2 mg/dL (0.0-2.0); WBC, URINE AUTO TNTC /HPF (0-3)
== END ==
LOC: M LAB REF 14:01
DX: R30.0 Dysuria (principal)
CPT/HCPCS: 81001

== ENCOUNTER → 2018-01-22 | Outpatient (CLI) | payer OTHER ==
[2018-01-22 16:48] LABS: FREE T3 2.6 PG/ML (2.2-4.0); FREE T4 0.98 NG/DL (0.76-1.46)
== END ==
LOC: M WUC 11:03
DX: E07.9 Disorder of thyroid, unspecified (principal)
CPT/HCPCS: 84443

== ENCOUNTER 2018-05-01 09:35 | Inpatient (IN) | payer MEDICARE, MEDICAID ==
[~2018-05-01] VITALS: Ht 152.4 cm; Wt 50.0 kg
[~2018-05-01 09:35] MED LIST changes: -BIOT10005 PO; +BIOT10008 PO; -LASI20TA PO; +LASI20TA3 PO; -PRED10TA PO; +PRED10TA2 PO; +VITA-182 PO; -VITA100041 PO
--- NOTE | 2018-05-01 10:24 | REP ---
Chest one-view HISTORY: Altered mental status Comparison: 06/09/2017 There is elevation of the left hemidiaphragm. An increase in interstitial markings is present in the lungs consistent with chronic interstitial change. Linear densities are present in the lower lobes consistent with atelectasis or scarring. The heart is normal in size. The pulmonary vasculature is normal in appearance. Impression: 1. Chronic interstitial change. 2. Bibasilar atelectasis or scarring. Electronically Signed by Tyler Morocho MD 05/01/2018 10:17 A
[2018-05-01 10:27] LABS: VENOUS BASE EXCESS 6.1 (-2.0-2.0); VENOUS O2 SATURATION 53.8 % (60.0-80.0); VENOUS PARTIAL PRESSURE CO2 64.7 mmHg (38.0-50.0); VENOUS PARTIAL PRESSURE O2 32.6 mmHg (30.0-50.0); VENOUS PH 7.339 UNITS (7.330-7.430); VENOUS STANDARD HCO3 28.8 MEQ/L
[2018-05-01 10:29] LABS: BASO % 0.1 % (0.0-1.0); HEMATOCRIT 41.2 % (36.0-47.0); HEMOGLOBIN 12.9 g/dl (12.0-15.5); LYMPH # 0.9 10^3/uL (1.5-4.5); LYMPH % 9.5 % (24.0-44.0); MEAN CORPUSCULAR HEMOGLOBIN 29.9 pg (27.0-33.0); MEAN CORPUSCULAR HGB CONC 31.3 g/dl (32.0-36.5); MEAN CORPUSCULAR VOLUME 95.4 fl (80.0-96.0); MONO # 0.6 10^3/uL (0.0-0.8); NEUTROPHILS # 7.6 10^3/uL (1.8-7.7); NEUTROPHILS % 82.9 % (36.0-66.0); PLATELET COUNT, AUTOMATED 316 10^3/uL (150-450); RED BLOOD COUNT 4.32 10^6/uL (4.00-5.40); WHITE BLOOD COUNT 9.2 10^3/uL (4.0-10.0)
[2018-05-01 11:12] LABS: ALBUMIN 3.4 GM/DL (3.2-5.2); ALT/SGPT 37 U/L (12-78); BILIRUBIN,DIRECT 0.1 MG/DL (0.0-0.2); BILIRUBIN,TOTAL 0.3 MG/DL (0.2-1.0); BLOOD UREA NITROGEN 21 MG/DL (7-18); CALCIUM LEVEL 9.1 MG/DL (8.8-10.2); CARBON DIOXIDE LEVEL 34 MEQ/L (21-32); CHLORIDE LEVEL 103 MEQ/L (98-107); CPK CREATINE PHOSPHOKINASE 221 U/L (26-192); CREATININE FOR GFR 0.93 MG/DL (0.55-1.30); GLOMERULAR FILTRATION RATE > 60.0 (>32); GLUCOSE, FASTING 133 MG/DL (70-100); MB/CK RELATIVE INDEX 1.22 (< OR =4); POTASSIUM SERUM 4.1 MEQ/L (3.5-5.1); SODIUM LEVEL 143 MEQ/L (136-145); TOTAL PROTEIN 7.3 GM/DL (6.4-8.2); TROPONIN I 0.02 NG/ML (< 0.10)
[2018-05-01] MEDS ORDERED: ALBUTEROL SULFATE 2.5 MG/0.5 ML INH NEB SOLN NEB ONE (11:15)
[2018-05-01] MEDS ORDERED: NS IV ONE (11:15)
[2018-05-01] MEDS ORDERED: DILUENT IV ONE (11:15)
[2018-05-01] MEDS ORDERED: cefTRIAXone SOD 2 GM in D5W MINI-BAG PLUS 50 ML IV ONE (11:15)
[2018-05-01 11:25] LABS: OSMOLALITY SERUM 314 MOSM/KG (280-301)
--- NOTE | 2018-05-01 12:46 | REP ---
CT Head without contrast HISTORY: Altered mental status COMPARISON: 11/12/2011 Areas of decreased attenuation are present in the periventricular and subcortical white matter. This represents small-vessel ischemic disease. There is no intraparenchymal hemorrhage, acute infarct, mass or midline shift. The ventricular system and cortical sulci as well as subarachnoid space in the posterior fossa are dilated consistent with moderate volume loss. There is no extra cerebral collection. There is no fracture. The visualized sinuses are clear. IMPRESSION: 1. Small vessel ischemic disease. 2. Moderate volume loss. Electronically Signed by Tyler Morocho MD 05/01/2018 12:37 P
[2018-05-01] MEDS ORDERED: LEVE100SOL PO (13:06)
[2018-05-01] MEDS ORDERED: IPRA0.00 INH (13:06)
[2018-05-01] MEDS ORDERED: BREO1INH3 INH (13:06)
[2018-05-01] MEDS ORDERED: BRIM0.2S13 OU (13:06)
[2018-05-01] MEDS ORDERED: NAME14CA PO (13:11)
[2018-05-01] MEDS ORDERED: LEVO25TA5 PO (13:11)
[2018-05-01] MEDS ORDERED: FURO40TA2 PO (13:11)
[2018-05-01] MEDS ORDERED: ASPI81CH32 PO (13:16)
[2018-05-01] MEDS ORDERED: FIBE62TA PO (13:16)
[2018-05-01] MEDS ORDERED: PRESCAP PO (13:16)
[2018-05-01] MEDS ORDERED: ACET1TAB55 PO (13:16)
[2018-05-01] MEDS ORDERED: VITMTA PO (13:16)
[2018-05-01] MEDS ORDERED: VITA200038 PO (13:16)
[2018-05-01] MEDS ORDERED: VITA10002 PO (13:16)
[2018-05-01] MEDS ORDERED: GLUC1CAP9 PO (13:16)
[2018-05-01] MEDS ORDERED: PATIENT COMMENT (13:16)
[2018-05-01] MEDS ORDERED: BIOT10008 PO (13:16)
[2018-05-01] MEDS ORDERED: ACETAMINOPHEN 325 MG TAB PO PRN (15:15)
--- NOTE | 2018-05-01 16:37 | HPE ---
DATE OF ADMISSION: 05/01/2018 83-year-old female with past medical history of chronic diastolic heart failure, history of chronic obstructive pulmonary disease (COPD) requiring baseline of 3-4 liters of oxygen, seizure disorder, moderate to advanced dementia, presents to emergency room with decreased appetite over the last 3 days. Patient denied any urinary symptoms or nausea or abdominal pain, just weakness and poor appetite. Patient subsequently had a urinalysis done and was found to be clearly a urinary tract infection (UTI), was started on IV Rocephin by the emergency room (ER) attending. Patient appears in no distress but will be admitted for further management. She denies any subjective feeling of fever, aches, or chills. Again, past medical history of oxygen dependent COPD requiring 3-4 liters nasal cannula at baseline, history of chronic diastolic heart failure, seizure disorder, moderate to advanced dementia, hypothyroidism, history of left upper lobe lobectomy secondary to benign lesion in early 1989, history of hysterectomy and cataract surgery. ALLERGIES: She has allergies to IODINE and SULFA DRUGS. FAMILY HISTORY: Noncontributory. SOCIAL HISTORY: Patient is a former smoker, smoked approximately a pack a day for 30 years, quit in 1990. Denies alcohol or illicit drugs. MEDICATIONS: She takes at home are as follows: - Tylenol as needed - DuoNebs as needed - aspirin 81 mg orally daily - biotin 1000 mg orally daily - brimonidine one drop both eyes twice a day - calcium polycarbophil one tablet orally daily - calciferol 2000 units orally daily - fluticasone vilanterol 40 mg orally daily - glucosamine one capsule orally daily - levetiracetam 500 mg orally twice a day - Synthroid 37.5 mcg orally daily - memantine 14 mg orally daily - multivitamin one tablet orally daily Review of systems is negative for all ten major systems except what is mentioned in history of present illness (HPI). Vital signs: Blood pressure 167/65, heart rate is 103, regular, respiratory rate is 22, temperature is 99.1, oxygen saturation is 99% on 3 liters nasal cannula. Head is atraumatic, normocephalic. Neck is supple, no jugular venous distention (JVD). Lungs are clear to auscultation. S1, S2 audible, no murmurs appreciated. Abdomen is soft, positive bowel sounds. No pedal edema. Skin intact. Neurologic examination: Patient awake, alert, oriented times two. LABORATORY DATA: WBC 9.2, hemoglobin 12.9, hematocrit 41.2, platelets are 316,000, sodium 143, potassium 4.1, chloride 103, CO2 34, BUN 21, creatinine 0.93. Serum osmolality is 314, lactic acid 3.5, TSH 2.3. IMPRESSION: 1. Urinary tract infection (UTI). 2. Hypernatremia. PLAN: Patient will be admitted to the medical/surgical floor. Will continue patient on IV Cipro 400 IV every 12 hours and will be awaiting the urine culture and sensitivity. I will start her on normal saline at 100 mL/hour and monitor sodium trends. I will hold her Lasix at this time and otherwise will continue her other preadmission medications and continue her care in the medical/surgical floor.
[2018-05-01 17:30] VITALS: BP 166/92
[2018-05-01] MEDS: NS 1,000 ML IV SCH (18:21)
[2018-05-01] MEDS: CIPROFLOXACIN 400 MG in APPROPRIATE DILUENT 1 EA IV SCH (18:21)
--- NOTE | 2018-05-01 19:16 | ECGEPIP ---
Stationary ECG Study [facility] - ED Test Date: 2018-05-01 Pat Name: MARTHA BANKS Department: Room: - Gender: F Cap Inspector: kendall : 1935 Requested By: Lydia Jacques Order Number: [id number] Reading MD: Rickey Velazquez Measurements Intervals [place] Rate: 103 P: 83 WI: 175 QRS: 32 QRSD: 83 T: 44 QT: 337 QTc: 443 Interpretive Statements SINUS TACHYCARDIA INCOMPLETE RIGHT BUNDLE BRANCH BLOCK SIMILAR TO 06/09/17 Electronically Signed On 05-01-2018 19:16:51 EDT by Rickey Velazquez
[2018-05-01] MEDS ORDERED: SALIVA SUBSTITUTE(MOUTHKOTE) BTL MT PRN (21:15)
[2018-05-01 22:00] VITALS: BP 121/59
[2018-05-01] MEDS: HEPARIN SOD (PORCINE) 5000 UNITS/ML VIAL SC SCH (22:06)
[2018-05-01] MEDS: levETIRAcetam ORAL SOLUTION 500 MG/5 ML UDC PO SCH (22:06)
[2018-05-01] MEDS: BRIMONIDINE 0.1% OPHTH SOLN 5 ML OU SCH (22:06)
[2018-05-02] MEDS: NS 1,000 ML IV SCH (02:00)
[2018-05-02] MEDS: CIPROFLOXACIN 400 MG in APPROPRIATE DILUENT 1 EA IV SCH ×2 (05:55→17:27)
[2018-05-02] MEDS: LEVOTHYROXINE 37.5MCG PER 1/2TAB (0.0375MG) PO SCH (05:56)
[2018-05-02] MEDS: HEPARIN SOD (PORCINE) 5000 UNITS/ML VIAL SC SCH ×3 (05:56→21:17)
[2018-05-02 06:00] VITALS: BP 161/78
[2018-05-02 06:57] LABS: BASO % 0.3 % (0.0-1.0); EOS % 0.5 % (0.0-3.0); LYMPH # 1.5 10^3/uL (1.5-4.5); LYMPH % 25.9 % (24.0-44.0); MEAN CORPUSCULAR HEMOGLOBIN 29.2 pg (27.0-33.0); MEAN CORPUSCULAR HGB CONC 30.3 g/dl (32.0-36.5); MEAN CORPUSCULAR VOLUME 96.3 fl (80.0-96.0); MONO # 0.6 10^3/uL (0.0-0.8); MONO % 11.2 % (0.0-5.0); NEUTROPHILS # 3.5 10^3/uL (1.8-7.7); NEUTROPHILS % 61.8 % (36.0-66.0); PLATELET COUNT, AUTOMATED 241 10^3/uL (150-450); RED BLOOD COUNT 3.53 10^6/uL (4.00-5.40); WHITE BLOOD COUNT 5.7 10^3/uL (4.0-10.0)
[2018-05-02 07:05] LABS: HEMOGLOBIN 10.3 g/dl (12.0-15.5)
[2018-05-02 07:17] LABS: BLOOD UREA NITROGEN 11 MG/DL (7-18); CALCIUM LEVEL 7.5 MG/DL (8.8-10.2); CARBON DIOXIDE LEVEL 30 MEQ/L (21-32); CHLORIDE LEVEL 107 MEQ/L (98-107); CREATININE FOR GFR 0.58 MG/DL (0.55-1.30); GLOMERULAR FILTRATION RATE > 60.0 (>32); GLUCOSE, FASTING 113 MG/DL (70-100); POTASSIUM SERUM 3.8 MEQ/L (3.5-5.1); SODIUM LEVEL 142 MEQ/L (136-145)
[2018-05-02] MEDS: SYMBICORT 80/4.5MCG INHALER 6GM INH SCH ×2 (07:48→20:39)
[2018-05-02] MEDS: MULTIVITAMINS/MINERALS THERAP 1 TAB PO SCH (09:48)
[2018-05-02] MEDS: ASPIRIN 81 MG CHEW TABLET PO SCH (09:48)
[2018-05-02] MEDS: OCUVITE 1 TAB PO SCH (09:48)
[2018-05-02] MEDS: VITAMIN D 1,000 INTERNATIONAL UNITS TABLET PO SCH (09:48)
[2018-05-02] MEDS: BRIMONIDINE 0.1% OPHTH SOLN 5 ML OU SCH ×2 (09:49→21:13)
[2018-05-02] MEDS: CYANOCOBALAMIN 500 MCG TAB PO SCH (09:49)
[2018-05-02] MEDS: FIBER-CON 625 MG TAB PO SCH (09:49)
[2018-05-02] MEDS: levETIRAcetam ORAL SOLUTION 500 MG/5 ML UDC PO SCH ×2 (09:49→21:13)
[2018-05-02] MEDS: IPRATROPIUM 0.5MG/ALBUTEROL 2.5MG INH SOL UD 3ML (DUONEB)(J7620) INH PRN ×3 (11:28→23:16)
[2018-05-02 14:00] VITALS: BP 127/76
--- NOTE | 2018-05-02 21:03 | IPNPDOC ---
Text Note Date of Service The patient was seen on 05/02/18. NOTE Subjective: Patient is pleasantly confused. DOes not offer any complaints. But says her belly feels ok. No fever or chills, no complaints of dysuria. As per daughter in law at bedside she looks better. the patient had not urinated or had a bowel movement for 2 days before coming the hospital that made the family very concerned. Physical Exam: Vital signs: As below Head is atraumatic, normocephalic. Neck is supple, no jugular venous distention (JVD). Lungs are clear to auscultation. Heart: S1, S2 audible, no murmurs appreciated. Abdomen is soft, positive bowel sounds. No pedal edema. Skin intact. Neurologic examination: Patient awake, alert, oriented times two. Labs and radiology: reviewed Assessment and Plan: 83-year-old female with past medical history of chronic diastolic heart failure, history of chronic obstructive pulmonary disease (COPD) requiring baseline of 3- 4 liters of oxygen, seizure disorder, moderate to advanced dementia, presents to emergency room with decreased appetite over the last 3 days. Patient denied any urinary symptoms or nausea or abdominal pain, just weakness and poor appetite. Patient subsequently had a urinalysis done and was found to be clearly a urinary tract infection (UTI), was started on IV Rocephin by the emergency room (ER) attending. Patient was admitted for a presumed UTI UTI Ua very dirty. However patient does not have any dysuria, frequency or hematuria but due to dementia history in unreliable. Could be asymptomatic bacteruria vs actual UTI Will treat as UTI for now till cultures are back blood culture negative till date continue cipro Lacticacidosis resolved probably due to dehydration Dementia. severe continue home medications Has declining oral intake will get a calorie count. DC IVF. COPD with chronic hypoxic respiratory failure stable at this point will give symbicort in place of breo continue albuterol prn. continue oxygen supplementation Chronic diastolic congestive heart failure. Seizure disorder. 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 DVT prophylaxis in place VS,Fishbone, I+O VS, Fishbone, I+O Laboratory Tests 05/01/18 10:18 Red Blood Count 4.32, Mean Corpuscular Volume 95.4, Mean Corpuscular Hemoglobin 29.9, Mean Corpuscular Hemoglobin Concent 31.3 L, Red Cell Distribution Width 1 3.5, Neutrophils (%) (Auto) 82.9 H, Lymphocytes (%) (Auto) 9.5 L, Monocytes (%) (Auto) 7.0 H, Eosinophils (%) (Auto) 0.0, Basophils (%) (Auto) 0.1, Neutrophils # (Auto) 7.6, Lymphocytes # (Auto) 0.9 L, Monocytes # (Auto) 0.6, Eosinophils # (Auto) 0.0, Basophils # (Auto) 0.0 Vital Signs Date Time Temp Pulse Resp B/P (MAP) Pulse Ox O2 Delivery O2 Flow Rate FiO2 05/02/18 05:02 3.0 05/01/18 22:00 98.4 91 20 121/59 (79) 96 05/01/18 12:24 Nasal Cannula I&O- Last 24 Hours up to 6 AM 05/02/18 06:00 Intake Total 3341 ml Output Total 0 ml Balance 3341 ml RANJEET SYED MD May 02, 2018 07:09
[2018-05-02 22:00] VITALS: BP 147/70
[2018-05-03 06:00] VITALS: BP 165/77
[2018-05-03] MEDS: CIPROFLOXACIN 400 MG in APPROPRIATE DILUENT 1 EA IV SCH ×2 (06:04→17:20)
[2018-05-03] MEDS: HEPARIN SOD (PORCINE) 5000 UNITS/ML VIAL SC SCH ×3 (06:04→21:06)
[2018-05-03] MEDS: LEVOTHYROXINE 37.5MCG PER 1/2TAB (0.0375MG) PO SCH (06:04)
[2018-05-03 07:05] LABS: BASO % 0.4 % (0.0-1.0); EOS % 0.8 % (0.0-3.0); HEMATOCRIT 32.1 % (36.0-47.0); HEMOGLOBIN 9.9 g/dl (12.0-15.5); LYMPH # 1.8 10^3/uL (1.5-4.5); LYMPH % 34.9 % (24.0-44.0); MEAN CORPUSCULAR HEMOGLOBIN 29.3 pg (27.0-33.0); MEAN CORPUSCULAR HGB CONC 30.8 g/dl (32.0-36.5); MONO # 0.6 10^3/uL (0.0-0.8); MONO % 12.2 % (0.0-5.0); NEUTROPHILS # 2.7 10^3/uL (1.8-7.7); NEUTROPHILS % 51.3 % (36.0-66.0); PLATELET COUNT, AUTOMATED 260 10^3/uL (150-450); RED BLOOD COUNT 3.38 10^6/uL (4.00-5.40); WHITE BLOOD COUNT 5.2 10^3/uL (4.0-10.0)
[2018-05-03 07:34] LABS: BLOOD UREA NITROGEN 13 MG/DL (7-18); CALCIUM LEVEL 7.9 MG/DL (8.8-10.2); CARBON DIOXIDE LEVEL 30 MEQ/L (21-32); CHLORIDE LEVEL 105 MEQ/L (98-107); CREATININE FOR GFR 0.55 MG/DL (0.55-1.30); GLOMERULAR FILTRATION RATE > 60.0 (>32); GLUCOSE, FASTING 96 MG/DL (70-100); POTASSIUM SERUM 3.9 MEQ/L (3.5-5.1); SODIUM LEVEL 139 MEQ/L (136-145)
[2018-05-03] MEDS: IPRATROPIUM 0.5MG/ALBUTEROL 2.5MG INH SOL UD 3ML (DUONEB)(J7620) INH PRN ×2 (07:52→13:56)
[2018-05-03] MEDS: SYMBICORT 80/4.5MCG INHALER 6GM INH SCH ×2 (07:52→20:23)
[2018-05-03] MEDS: levETIRAcetam ORAL SOLUTION 500 MG/5 ML UDC PO SCH ×2 (08:42→20:12)
[2018-05-03] MEDS: ASPIRIN 81 MG CHEW TABLET PO SCH (08:42)
[2018-05-03] MEDS: OCUVITE 1 TAB PO SCH (08:43)
[2018-05-03] MEDS: CYANOCOBALAMIN 500 MCG TAB PO SCH (08:43)
[2018-05-03] MEDS: MULTIVITAMINS/MINERALS THERAP 1 TAB PO SCH (08:43)
[2018-05-03] MEDS: FIBER-CON 625 MG TAB PO SCH (08:43)
[2018-05-03] MEDS: VITAMIN D 1,000 INTERNATIONAL UNITS TABLET PO SCH (08:43)
[2018-05-03] MEDS: BRIMONIDINE 0.1% OPHTH SOLN 5 ML OU SCH ×2 (08:44→20:12)
[2018-05-03 14:00] VITALS: BP 138/75
--- NOTE | 2018-05-03 17:18 | IPNPDOC ---
Text Note Date of Service The patient was seen on 05/03/18. NOTE Subjective: Patient is pleasantly confused. DOes not offer any complaints. But says her belly feels ok. No fever or chills, no complaints of dysuria. Physical Exam: Vital signs: As below Head is atraumatic, normocephalic. Neck is supple, no jugular venous distention (JVD). Lungs are clear to auscultation. Heart: S1, S2 audible, no murmurs appreciated. Abdomen is soft, positive bowel sounds. No pedal edema. Skin intact. Neurologic examination: Patient awake, alert, oriented times two. Labs and radiology: reviewed Assessment and Plan: 83-year-old female with past medical history of chronic diastolic heart failure, history of chronic obstructive pulmonary disease (COPD) requiring baseline of 3- 4 liters of oxygen, seizure disorder, moderate to advanced dementia, presents to emergency room with decreased appetite over the last 3 days. Patient denied any urinary symptoms or nausea or abdominal pain, just weakness and poor appetite. Patient subsequently had a urinalysis done and was found to be clearly a urinary tract infection (UTI), was started on IV Rocephin by the emergency room (ER) attending. Patient was admitted for a presumed UTI UTI Ua very dirty. However patient does not have any dysuria, frequency or hematuria but due to dementia history in unreliable. Could be asymptomatic bacteruria vs actual UTI urine cultures show Ecoli. blood culture negative till date continue cipro Lacticacidosis resolved probably due to dehydration Dementia. severe has declining oral intake will get a calorie count. COPD with chronic hypoxic respiratory failure stable at this point will give symbicort in place of breo continue albuterol prn. continue oxygen supplementation Chronic diastolic congestive heart failure. euvolic at present Seizure disorder. 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 DVT prophylaxis in place VS,Fishbone, I+O VS, Fishbone, I+O Laboratory Tests 05/03/18 06:33 Red Blood Count 3.38 L, Mean Corpuscular Volume 95.0, Mean Corpuscular Hemog lobin 29.3, Mean Corpuscular Hemoglobin Concent 30.8 L, Red Cell Distribution Width 13.4, Neutrophils (%) (Auto) 51.3, Lymphocytes (%) (Auto) 34.9, Monocytes (%) (Auto) 12.2 H, Eosinophils (%) (Auto) 0.8, Basophils (%) (Auto) 0.4, Neutrophils # (Auto) 2.7, Lymphocytes # (Auto) 1.8, Monocytes # (Auto) 0.6, Eosinophils # (Auto) 0.0, Basophils # (Auto) 0.0, Calcium Level 7.9 L Vital Signs Date Time Temp Pulse Resp B/P (MAP) Pulse Ox O2 Delivery O2 Flow Rate FiO2 05/03/18 14:00 98.1 96 19 138/75 (96) 97 2.0 05/01/18 12:24 Nasal Cannula I&O- Last 24 Hours up to 6 AM 05/03/18 06:00 Intake Total 120 ml Output Total 0 ml Balance 120 ml RANJEET SYED MD May 03, 2018 17:18
[2018-05-03 22:00] VITALS: BP 117/57
[2018-05-04 06:00] VITALS: BP 152/70
[2018-05-04] MEDS: HEPARIN SOD (PORCINE) 5000 UNITS/ML VIAL SC SCH (06:00)
[2018-05-04] MEDS: LEVOTHYROXINE 37.5MCG PER 1/2TAB (0.0375MG) PO SCH (06:00)
[2018-05-04] MEDS: CIPROFLOXACIN 400 MG in APPROPRIATE DILUENT 1 EA IV SCH (06:23)
[2018-05-04 07:04] LABS: BASO % 0.3 % (0.0-1.0); EOS % 0.7 % (0.0-3.0); HEMATOCRIT 33.4 % (36.0-47.0); HEMOGLOBIN 10.4 g/dl (12.0-15.5); LYMPH # 1.6 10^3/uL (1.5-4.5); LYMPH % 26.2 % (24.0-44.0); MEAN CORPUSCULAR HEMOGLOBIN 29.2 pg (27.0-33.0); MEAN CORPUSCULAR HGB CONC 31.1 g/dl (32.0-36.5); MEAN CORPUSCULAR VOLUME 93.8 fl (80.0-96.0); MONO # 0.8 10^3/uL (0.0-0.8); NEUTROPHILS # 3.5 10^3/uL (1.8-7.7); NEUTROPHILS % 57.8 % (36.0-66.0); PLATELET COUNT, AUTOMATED 267 10^3/uL (150-450); RED BLOOD COUNT 3.56 10^6/uL (4.00-5.40)
[2018-05-04 07:18] LABS: BLOOD UREA NITROGEN 11 MG/DL (7-18); CALCIUM LEVEL 8.2 MG/DL (8.8-10.2); CARBON DIOXIDE LEVEL 32 MEQ/L (21-32); CHLORIDE LEVEL 104 MEQ/L (98-107); CREATININE FOR GFR 0.58 MG/DL (0.55-1.30); GLOMERULAR FILTRATION RATE > 60.0 (>32); GLUCOSE, FASTING 87 MG/DL (70-100); SODIUM LEVEL 139 MEQ/L (136-145)
[2018-05-04] MEDS: SYMBICORT 80/4.5MCG INHALER 6GM INH SCH (07:59)
[2018-05-04] MEDS: levETIRAcetam ORAL SOLUTION 500 MG/5 ML UDC PO SCH (08:26)
[2018-05-04] MEDS: FIBER-CON 625 MG TAB PO SCH (08:26)
[2018-05-04] MEDS: OCUVITE 1 TAB PO SCH (08:26)
[2018-05-04] MEDS: CYANOCOBALAMIN 500 MCG TAB PO SCH (08:26)
[2018-05-04] MEDS: ASPIRIN 81 MG CHEW TABLET PO SCH (08:26)
[2018-05-04] MEDS: VITAMIN D 1,000 INTERNATIONAL UNITS TABLET PO SCH (08:26)
[2018-05-04] MEDS: MULTIVITAMINS/MINERALS THERAP 1 TAB PO SCH (08:27)
[2018-05-04] MEDS: BRIMONIDINE 0.1% OPHTH SOLN 5 ML OU SCH (08:27)
[2018-05-04] MEDS ORDERED: LEVO250T12 PO (09:15)
== END 2018-05-04 11:10 | disposition home or self-care (01) | DRG 690 ==
LOC: M ED 09:35 → EDBD 09:35 → M ED INP 15:15 → M MS5PR 17:28
PROVIDERS: ADMIT Internal Medicine; ATTEND Internal Medicine Nephrology
DX: N39.0 Urinary tract infection, site not specified (principal); I50.32 Chronic diastolic (congestive) heart failure; E87.2 Acidosis; J96.11 Chronic respiratory failure with hypoxia; E87.0 Hyperosmolality and hypernatremia; J44.9 Chronic obstructive pulmonary disease, unspecified; G40.909 Epilepsy, unspecified, not intractable, without status epilepticus; F03.90 Unspecified dementia, unspecified severity, without behavioral disturbance, psychotic disturbance, mood disturbance, and anxiety; Z99.81 Dependence on supplemental oxygen; E03.9 Hypothyroidism, unspecified; Z88.2 Allergy status to sulfonamides; Z88.8 Allergy status to other drugs, medicaments and biological substances; Z79.899 Other long term (current) drug therapy; Z88.6 Allergy status to analgesic agent; Z87.891 Personal history of nicotine dependence; E53.8 Deficiency of other specified B group vitamins; B96.29 Other Escherichia coli [E. coli] as the cause of diseases classified elsewhere

== ENCOUNTER → 2018-05-27 | Outpatient (REF) | payer MEDICARE, MEDICAID ==
[~2018-05-27] MED LIST changes: -/MOXI40TA OR; +ACET1TAB55 PO; +ASPI81CH33 PO; +AVEL1TAB2 OR; +BRIM0.2S13 OU; +IPRA0.00 INH; +LEVE100SOL PO; -LEVE500T64 PO; +LEVE500T88 PO; +LEVO250T12 PO; +LEVO25TA5 PO; +PATIENT COMMENT; +PRESCAP PO; +VITA200038 PO
[2018-05-27 14:03] LABS: BLOOD UREA NITROGEN 13 MG/DL (7-18); CALCIUM LEVEL 8.5 MG/DL (8.8-10.2); CARBON DIOXIDE LEVEL 32 MEQ/L (21-32); CHLORIDE LEVEL 104 MEQ/L (98-107); GLOMERULAR FILTRATION RATE > 60.0 (>32); GLUCOSE, FASTING 92 MG/DL (70-100); POTASSIUM SERUM 4.5 MEQ/L (3.5-5.1); SODIUM LEVEL 141 MEQ/L (136-145)
== END ==
LOC: M LAB REF 12:39
PROVIDERS: ATTEND Family Medicine
DX: E86.0 Dehydration (principal)

== ENCOUNTER → 2018-06-17 | Outpatient (REF) | payer MEDICARE, MEDICAID ==
[2018-06-17 20:04] LABS: APPEARANCE, URINE HAZY (CLEAR); BACTERIA, URINE AUTO 1+ (NEGATIVE); BILIRUBIN, URINE AUTO NEGATIVE (NEGATIVE); BLOOD, URINE BLOOD NEGATIVE (NEGATIVE); COLOR, URINE YELLOW (YELLOW); GLUCOSE, URINE (UA) AUTO NEGATIVE (NEGATIVE); KETONE, URINE AUTO NEGATIVE (NEGATIVE); LEUKOCYTE ESTERASE, URINE AUTO 1+ (NEGATIVE); MUCUS, URINE SMALL (NEGATIVE); NITRITE, URINE AUTO NEGATIVE (NEGATIVE); PROTEIN, URINE AUTO NEGATIVE (NEGATIVE); RBC, URINE AUTO 5 /HPF (0-3); SQUAMOUS EPITHELIAL CELL UR AU 4 /HPF (0-6); UROBILINOGEN, URINE AUTO 0.2 mg/dL (0.0-2.0); WBC, URINE AUTO 6 /HPF (0-3)
== END ==
LOC: M LAB REF 17:53
PROVIDERS: ATTEND Family Medicine
DX: R30.0 Dysuria (principal)

== ENCOUNTER → 2018-08-09 | Outpatient (REF) | payer MEDICARE, MEDICAID ==
[2018-08-09 13:10] LABS: APPEARANCE, URINE TURBID (CLEAR); BACTERIA, URINE AUTO 3+ (NEGATIVE); BILIRUBIN, URINE AUTO NEGATIVE (NEGATIVE); BLOOD, URINE BLOOD 3+ (NEGATIVE); COLOR, URINE YELLOW (YELLOW); GLUCOSE, URINE (UA) AUTO NEGATIVE (NEGATIVE); KETONE, URINE AUTO NEGATIVE (NEGATIVE); LEUKOCYTE ESTERASE, URINE AUTO 3+ (NEGATIVE); NITRITE, URINE AUTO POSITIVE (NEGATIVE); PROTEIN, URINE AUTO 2+ mg/dL (NEGATIVE); RBC, URINE AUTO TNTC /HPF (0-3); SPECIFIC GRAVITY URINE AUTO 1.019 (1.002-1.035); SQUAMOUS EPITHELIAL CELL UR AU 0 /HPF (0-6); UROBILINOGEN, URINE AUTO 0.2 mg/dL (0.0-2.0); WBC, URINE AUTO TNTC /HPF (0-3)
== END ==
LOC: M LAB REF 12:15
PROVIDERS: ATTEND Family Medicine
DX: N39.0 Urinary tract infection, site not specified (principal)

== ENCOUNTER → 2019-06-19 | Outpatient (REF) | payer OTHER, MEDICARE ==
[~2019-06-19] MED LIST changes: +CYAN100049 PO; -VITA10002 PO
[2019-06-19 13:56] LABS: HEMATOCRIT 34.2 % (36.0-47.0); HEMOGLOBIN 10.6 g/dl (12.0-15.5); PLATELET COUNT, AUTOMATED 274 10^3/uL (150-450); RED BLOOD COUNT 3.42 10^6/uL (4.00-5.40); WHITE BLOOD COUNT 6.4 10^3/uL (4.0-10.0)
[2019-06-19 14:38] LABS: ALBUMIN 3.1 GM/DL (3.2-5.2); ALT/SGPT 19 U/L (12-78); BILIRUBIN,TOTAL 0.2 MG/DL (0.2-1.0); BLOOD UREA NITROGEN 18 MG/DL (7-18); CALCIUM LEVEL 8.7 MG/DL (8.8-10.2); CARBON DIOXIDE LEVEL 39 MEQ/L (21-32); CHLORIDE LEVEL 100 MEQ/L (98-107); CREATININE FOR GFR 0.72 MG/DL (0.55-1.30); FREE T3 2.7 PG/ML (2.2-4.0); FREE T4 1.12 NG/DL (0.76-1.46); GLOMERULAR FILTRATION RATE > 60.0 (>32); GLUCOSE, FASTING 117 MG/DL (70-100); POTASSIUM SERUM 4.1 MEQ/L (3.5-5.1); SODIUM LEVEL 143 MEQ/L (136-145); TOTAL PROTEIN 6.7 GM/DL (6.4-8.2)
== END ==
LOC: M LAB REF 13:40
PROVIDERS: ATTEND Family Medicine
DX: E03.9 Hypothyroidism, unspecified (principal); F03.90 Unspecified dementia, unspecified severity, without behavioral disturbance, psychotic disturbance, mood disturbance, and anxiety

== ENCOUNTER → 2019-07-06 | Outpatient (REF) | payer MEDICARE | LOC: M LAB REF 17:12 | PROVIDERS: ATTEND Family Medicine | DX: N39.0 Urinary tract infection, site not specified (principal) ==

== ENCOUNTER → 2019-08-06 | Outpatient (REF) | payer MEDICARE | LOC: M LAB REF 16:02 | PROVIDERS: ATTEND Physician Assistant Medical | DX: G40.409 Other generalized epilepsy and epileptic syndromes, not intractable, without status epilepticus (principal) ==